=== PATIENT | male | born 2000 | race African-American/Black ===

== ENCOUNTER 2023-02-18 11:50 | Emergency (ER) | payer OTHER, SELFPAY ==
[2023-02-18] VITALS (7 sets, daily range): BP systolic 126–136; BP diastolic 57–63; PULSE 49–64; RESP 16; TEMP 36.9; O2SAT 99–100; BMI 29.6
[2023-02-18] MEDS: PANTOPRAZOLE 40 MG VIAL 80 MG IV (15:30)
[2023-02-18 15:53] LABS: Add Manual Diff / Slide Review NO; Basophils Absolute Auto 0 /uL (0-100); Basophils Percent Auto 0.5 % (0-2); Eosinophils Absolute Auto 100 /uL (0-450); Eosinophils Percent Auto 1.4 % (2-4); Hematocrit 43.6 % (41-53); Hemoglobin 14.7 g/dL (13.5-17.5); Lymphocytes Absolute Auto 1300 /uL (1100-4500); Lymphocytes Percent Auto 31.7 % (25-40); Mean Corpuscular HGB Conc 33.7 % (30-36); Mean Corpuscular Hemoglobin 28.8 PG (26-34); Mean Corpuscular Volume 85.4 fL (80-100); Monocytes Absolute Auto 400 /uL (0-900); Monocytes Percent Auto 10.9 % (3-14); Neutrophils Absolute Auto 2200 /uL (1500-7000); Neutrophils Percent Auto 55.5 % (50-75); Platelet Count 212 X10^3/uL (150-400); Red Blood Cell Count 5.11 X10^6/uL (4.5-5.9); Red Cell Distribution Width 13.4 % (11.6-14.8)
[2023-02-18 16:01] LABS: Alanine Aminotransferase 28 IU/L (<50); Albumin 4.5 g/dL (3.5-5.0); Albumin Globulin Ratio 1.4 (1.0-2.8); Alkaline Phosphatase 44 U/L (38-126); Aspartate Aminotransferase 31 IU/L (17-59); BUN Creatinine Ratio 19.8 (6-22); Bilirubin Total 0.6 mg/dL (0.2-1.3); Blood Urea Nitrogen 16 mg/dL (9-20); Calcium 9.2 mg/dL (8.4-10.2); Carbon Dioxide 28 mmol/L (22-32); Chloride 102 mmol/L (98-107); Estimated Glomerular Filt Rate > 60 mL/min (>60); Globulin 3.2 g/dL (1.7-4.1); Glucose 101 mg/dL (70-100); HEMOLYSIS < 15 (0-50); Potassium 4.3 mmol/L (3.4-5.1); Sodium 137 mmol/L (137-145); Total Protein 7.7 g/dL (6.3-8.2)
[2023-02-18 16:05] LABS: INR 1.2 (0.9-1.3); Prothrombin Time 13.2 SECONDS (10.1-12.7)
[2023-02-18 16:08] LABS: PTT Partial Thromboplastin Tim 33 SECONDS (26-36)
--- NOTE | 2023-02-18 17:24 | DI.CT.S_ITS ---
PROCEDURE: CT ABDOMEN PELVIS W CON INDICATIONS: IV contrast only/rectal bleeding TECHNIQUE: After the administration of IV contrast, axial sections were acquired from the lung bases to the pubic symphysis. Coronal and sagittal reformats were performed. For radiation dose reduction, the following was used: automated exposure control, adjustment of mA and/or kV according to patient size. COMPARISON: None. FINDINGS: Image quality: Excellent. Lung bases: Unremarkable. Heart: No significant findings. ABDOMEN: Liver: Unremarkable. Gallbladder: Unremarkable. Biliary ducts: Unremarkable. Pancreas: Unremarkable. Spleen: Unremarkable. Adrenal Glands: Unremarkable. Kidneys and Ureters: Unremarkable. Stomach and Bowel: In this patient with this given history, scrutiny is given to the rectum. No focal rectal wall thickening can be seen. No perirectal inflammatory change is identified. No dilated loops of small bowel are seen. A normal appendix is incidentally noted. No significant gastric abnormality is seen. Peritoneum: No abnormal intraperitoneal fluid. No free air. Ventral Wall: No hernia. Abdominal Nodes: No retroperitoneal or mesenteric adenopathy by size criteria. Vessels: Aorta and inferior vena cava are normal in size. PELVIS: Pelvic Organs: Unremarkable. Bladder: Unremarkable. Pelvic Nodes: No enlarged lymph nodes. Miscellaneous: No inguinal hernias are seen. Bones: Unremarkable. IMPRESSION: A cause of rectal bleeding is not seen on this study. Dictated by: Prashanth Crow M.D. on 02/18/2023 at 17:13 Approved by: Prashanth Crow M.D. on 02/18/2023 at 17:15
--- NOTE | 2023-02-18 17:25 | ED.GIBLEED ---
HPI - GI Bleed <Jaret Rees MD - Last Filed: 03/08/23 22:41> General Chief complaint: GI Bleed Stated complaint: rectal bleeding T-7 Time Seen by Provider: 02/18/23 17:00 Source: patient Mode of arrival: Ambulatory History of Present Illness HPI Narrative: Patient here for intermittent bright red blood per rectum. Denies any history ulcerative colitis or Crohn's disease. No history of diverticulosis. No history of anal fissures or hemorrhoids. Patient has painless bright red blood per rectum. Except for when he wipes has discomfort. Denies having to strain for bowel movements. Not on any blood thinners. Patient denies any dizziness dyspnea or syncope Related Data Allergies Allergy/AdvReac Type Severity Reaction Status Date / Time No Known Drug Allergies Allergy Verified 02/18/23 12:18 Review of Systems <Jaret Rees MD - Last Filed: 03/08/23 22:41> Review of Systems Narrative: GENERAL: negative chills, fatigue, malaise, fever, sweats. HEENT: negative sinus pain, ear pain, sore throat RESPIRATORY: negative dyspnea, cough CARDIOVASCULAR: negative chest pain, palpitations GASTROINTESTINAL: negative nausea, vomiting, abdominal pain, positive rectal bleeding : negative dysuria, frequency, hematuria MUSCULOSKELETAL: negative muscle or bony pain SKIN: negative rash, skin lesions NEUROLOGIC: negative weakness, numbness ROS Unobtainable: All systems reviewed & are unremarkable except as noted in HPI and below Patient History <Jaret Rees MD - Last Filed: 03/08/23 22:41> Social History Smoking Status: Never smoker Smoking Status: Never smoker Substance Use Type: does not use Exam <Jaret Rees MD - Last Filed: 03/08/23 22:41> Narrative Exam Narrative: GENERAL: in no distress, not toxic not dyspneic HEAD: Normocephalic. EYES: Pupils equal round ENT: Mucous membranes moist. NECK: Trachea midline. CARDIOVASCULAR: Regular rate and rhythm without murmurs RESPIRATORY: Clear to auscultation. Breath sounds equal bilaterally. No wheezes, rales, or rhonchi. GASTROINTESTINAL: Abdomen soft, non-tender, examination of the anus and rectum. There is no external hemorrhoid. No fissure. No active bleeding. EXTREMITIES: No gross deformities. BACK: No flank tenderness. NEURO: AOx4. SKIN: Warm and dry PSYCH: Not anxious, is cooperative Initial Vital Signs Initial Vital Signs: Vital Signs Temperature 98.4 F 02/18/23 12:06 Pulse Rate 56 L 02/18/23 12:06 Respiratory Rate 16 02/18/23 12:06 Blood Pressure 132/60 02/18/23 12:06 Pulse Oximetry 99 02/18/23 12:06 Oxygen Delivery Method Room Air 02/18/23 12:06 <Yokasta Zapata DO - Last Filed: 02/19/23 01:26> Initial Vital Signs Initial Vital Signs: Vital Signs Temperature 98.4 F 02/18/23 12:06 Pulse Rate 56 L 02/18/23 12:06 Respiratory Rate 16 02/18/23 12:06 Blood Pressure 132/60 02/18/23 12:06 Pulse Oximetry 99 02/18/23 12:06 Oxygen Delivery Method Room Air 02/18/23 12:06 Course <Jaret Rees MD - Last Filed: 03/08/23 22:41> Orders Ordered: Discontinued Medications Sodium Chloride (Normal Saline 0.9%) 500 mls @ 1,000 mls/hr IV BOLUS ONE Stop: 02/18/23 17:53 Last Infusion: 02/18/23 18:34 Dose: 0 mls/hr Documented By: Admin: 02/18/23 18:07 Dose: 1,000 mls/hr Documented By: NIKKI Ondansetron HCl (Ondansetron 4 Mg/2 Ml Inj) 4 mg IV NOW PRN PRN Reason: Nausea And Vomiting Ondansetron HCl (Ondansetron 4 Mg Odt) 4 mg SL NOW PRN PRN Reason: Nausea And Vomiting Pantoprazole Sodium (Pantoprazole 40 Mg Vial) 80 mg IV NOW ONE Stop: 02/18/23 12:15 Last Admin: 02/18/23 15:30 Dose: 80 mg Documented By: YELITZA Vital Signs Vital signs: Vital Signs - 8 hr 02/18/23 17:30 02/18/23 17:31 02/18/23 17:31 Pulse Rate 49 L 50 L Blood Pressure 136/63 Pulse Oximetry 99 100 Oxygen Delivery Method 02/18/23 18:00 Pulse Rate 51 L Blood Pressure Pulse Oximetry 100 Oxygen Delivery Method Room Air <Yokasta Zapata DO - Last Filed: 02/19/23 01:26> Orders Ordered: Discontinued Medications Sodium Chloride (Normal Saline 0.9%) 500 mls @ 1,000 mls/hr IV BOLUS ONE Stop: 02/18/23 17:53 Last Infusion: 02/18/23 18:34 Dose: 0 mls/hr Documented By: Admin: 02/18/23 18:07 Dose: 1,000 mls/hr Documented By: NIKKI Ondansetron HCl (Ondansetron 4 Mg/2 Ml Inj) 4 mg IV NOW PRN PRN Reason: Nausea And Vomiting Ondansetron HCl (Ondansetron 4 Mg Odt) 4 mg SL NOW PRN PRN Reason: Nausea And Vomiting Pantoprazole Sodium (Pantoprazole 40 Mg Vial) 80 mg IV NOW ONE Stop: 02/18/23 12:15 Last Admin: 02/18/23 15:30 Dose: 80 mg Documented By: YELITZA Vital Signs Vital signs: Vital Signs - 8 hr 02/18/23 17:30 02/18/23 17:31 02/18/23 17:31 Pulse Rate 49 L 50 L Blood Pressure 136/63 Pulse Oximetry 99 100 Oxygen Delivery Method 02/18/23 18:00 Pulse Rate 51 L Blood Pressure Pulse Oximetry 100 Oxygen Delivery Method Room Air MDM - GI Bleed <Jaret Rees MD - Last Filed: 03/08/23 22:41> Lab Data 02/18/23 15:10 02/18/23 15:10 Labs: Lab Results 02/18/23 02/18/23 02/18/23 Range/Units 15:10 15:10 15:10 WBC 4.0 L (4.5-11.0) X10^3/uL RBC 5.11 (4.5-5.9) X10^6/uL Hgb 14.7 (13.5-17.5) g/dL Hct 43.6 (41-53) % MCV 85.4 (80-100) fL MCH 28.8 (26-34) PG MCHC 33.7 (30-36) % RDW 13.4 (11.6-14.8) % Plt Count 212 (150-400) X10^3/uL Neut % (Auto) 55.5 (50-75) % Lymph % (Auto) 31.7 (25-40) % Gladwin % (Auto) 10.9 (3-14) % Eos % (Auto) 1.4 L (2-4) % Baso % (Auto) 0.5 (0-2) % Neut # (Auto) 2200 (7968-6698) /uL Lymph # (Auto) 1300 (7099-9815) /uL Gladwin # (Auto) 400 (0-900) /uL Eos # (Auto) 100 (0-450) /uL Baso # (Auto) 0 (0-100) /uL PT 13.2 H (10.1-12.7) SECONDS INR 1.2 (0.9-1.3) APTT 33 (26-36) SECONDS Sodium 137 (137-145) mmol/L Potassium 4.3 (3.4-5.1) mmol/L Chloride 102 (98-107) mmol/L Carbon Dioxide 28 (22-32) mmol/L BUN 16 (9-20) mg/dL Creatinine 0.81 (0.66-1.25) mg/dL Estimated GFR > 60 (>60) mL/min BUN/Creatinine Ratio 19.8 (6-22) Glucose 101 H (70-100) mg/dL Calcium 9.2 (8.4-10.2) mg/dL Total Bilirubin 0.6 (0.2-1.3) mg/dL AST 31 (17-59) IU/L ALT 28 (<50) IU/L Alkaline Phosphatase 44 (38-126) U/L Total Protein 7.7 (6.3-8.2) g/dL Albumin 4.5 (3.5-5.0) g/dL Globulin 3.2 (1.7-4.1) g/dL Albumin/Globulin Ratio 1.4 (1.0-2.8) Blood Type Antibody Screen 02/18/23 Range/Units 15:10 WBC (4.5-11.0) X10^3/uL RBC (4.5-5.9) X10^6/uL Hgb (13.5-17.5) g/dL Hct (41-53) % MCV (80-100) fL MCH (26-34) PG MCHC (30-36) % RDW (11.6-14.8) % Plt Count (150-400) X10^3/uL Neut % (Auto) (50-75) % Lymph % (Auto) (25-40) % Gladwin % (Auto) (3-14) % Eos % (Auto) (2-4) % Baso % (Auto) (0-2) % Neut # (Auto) (0938-6910) /uL Lymph # (Auto) (9788-4433) /uL Gladwin # (Auto) (0-900) /uL Eos # (Auto) (0-450) /uL Baso # (Auto) (0-100) /uL PT (10.1-12.7) SECONDS INR (0.9-1.3) APTT (26-36) SECONDS Sodium (137-145) mmol/L Potassium (3.4-5.1) mmol/L Chloride (98-107) mmol/L Carbon Dioxide (22-32) mmol/L BUN (9-20) mg/dL Creatinine (0.66-1.25) mg/dL Estimated GFR (>60) mL/min BUN/Creatinine Ratio (6-22) Glucose (70-100) mg/dL Calcium (8.4-10.2) mg/dL Total Bilirubin (0.2-1.3) mg/dL AST (17-59) IU/L ALT (<50) IU/L Alkaline Phosphatase (38-126) U/L Total Protein (6.3-8.2) g/dL Albumin (3.5-5.0) g/dL Globulin (1.7-4.1) g/dL Albumin/Globulin Ratio (1.0-2.8) Blood Type A Positive Antibody Screen Negative Imaging Data CT scan - abdomen/pelvis: Radiologist's Impression: [address] [address] [address] Scan Report Signed Patient: Chetan Knight MR#: [id number] : 2000 Acct:[id number] Age/Sex: 22 / M Date of Service: 02/18/23 Loc: ED Accession Number: [id number] ?? Procedure: CT abdomen pelvis w con Ordering Provider: Jaret Rees MD PROCEDURE:? CT ABDOMEN PELVIS W CON ? INDICATIONS:? IV contrast only/rectal bleeding ? TECHNIQUE:? After the administration of IV contrast, axial sections were acquired from the lung bases to the pubic symphysis.? Coronal and sagittal reformats were performed.? For radiation dose reduction, the following was used:? automated exposure control, adjustment of mA and/or kV according to patient size. ? COMPARISON:? None. ? FINDINGS:? Image quality:? Excellent.? ? Lung bases:? Unremarkable.? ? Heart:? No significant findings. ? ? ABDOMEN: Liver:? Unremarkable.? ? Gallbladder:? Unremarkable.? ? Biliary ducts:? Unremarkable.? ? Pancreas:? Unremarkable.? ? Spleen:? Unremarkable.? ? Adrenal Glands:? Unremarkable.? ? Kidneys and Ureters:? Unremarkable.? ? ? Stomach and Bowel: In this patient with this given history, scrutiny is given to the rectum.? No focal rectal wall thickening can be seen.? No perirectal inflammatory change is identified. No dilated loops of small bowel are seen. A normal appendix is incidentally noted.? No significant gastric abnormality is seen. Peritoneum:? No abnormal intraperitoneal fluid.? No free air.? ? Ventral Wall: ? No hernia.? Abdominal Nodes:? No retroperitoneal or mesenteric adenopathy by size criteria.? Vessels:? Aorta and inferior vena cava are normal in size.? ? PELVIS: Pelvic Organs:? Unremarkable.? ? Bladder:? Unremarkable.? ? Pelvic Nodes: No enlarged lymph nodes.? Miscellaneous: No inguinal hernias are seen. ? ? ? Bones:? Unremarkable.? IMPRESSION:? A cause of rectal bleeding is not seen on this study. ? ? ? Dictated by: Prashanth Crow M.D. on 02/18/2023 at 17:13 ? ? Approved by: Prashanth Crow M.D. on 02/18/2023 at 17:15 ? MDM Narrative Medical decision making narrative: After history and exam CBC CMP PT PTT type and screen normal saline CT abdomen pelvis ordered MDM CC: Rectal bleeding Complicating co-morbidities: None Data collected from: Patient Medical records reviewed: No previous visits here for this complaint Differential considered: Includes but not limited to diverticulosis hemorrhoid anal fissure Crohn's disease ulcerative colitis Exam documented above, pertinent findings include: No hemorrhoid or anal fissure seen Lab Test results independently reviewed as above. Pertinent findings: WBC 4 hemoglobin 14.7 hematocrit 43.6 platelet 212 PT 13.2 INR 1.2 PTT 33 BUN 16 creatinine 0.81 AST 31 ALT 28 A positive Imaging studies independently reviewed: CT abdomen pelvis no acute process Consultations: None indicated at this time Treatments: Normal saline Re-evaluations: 6:30 p.m.. Reviewed results with patient. Agrees with treatment plan and follow up with General surgery for colonoscopy. No bleeding during course of stay. Discussion: Appropriate for discharge home. Vital signs exam and CT imaging are reassuring. Return precautions reviewed with patient. Referral for General surgery for colonoscopy provided. Not toxic. Hemodynamically stable time of discharge Diagnosis: Acute lower GI bleed <Yokasta Zapata DO - Last Filed: 02/19/23 01:26> Lab Data Labs: Lab Results 02/18/23 02/18/23 02/18/23 Range/Units 15:10 15:10 15:10 WBC 4.0 L (4.5-11.0) X10^3/uL RBC 5.11 (4.5-5.9) X10^6/uL Hgb 14.7 (13.5-17.5) g/dL Hct 43.6 (41-53) % MCV 85.4 (80-100) fL MCH 28.8 (26-34) PG MCHC 33.7 (30-36) % RDW 13.4 (11.6-14.8) % Plt Count 212 (150-400) X10^3/uL Neut % (Auto) 55.5 (50-75) % Lymph % (Auto) 31.7 (25-40) % Gladwin % (Auto) 10.9 (3-14) % Eos % (Auto) 1.4 L (2-4) % Baso % (Auto) 0.5 (0-2) % Neut # (Auto) 2200 (8995-3518) /uL Lymph # (Auto) 1300 (4981-2539) /uL Gladwin # (Auto) 400 (0-900) /uL Eos # (Auto) 100 (0-450) /uL Baso # (Auto) 0 (0-100) /uL PT 13.2 H (10.1-12.7) SECONDS INR 1.2 (0.9-1.3) APTT 33 (26-36) SECONDS Sodium 137 (137-145) mmol/L Potassium 4.3 (3.4-5.1) mmol/L Chloride 102 (98-107) mmol/L Carbon Dioxide 28 (22-32) mmol/L BUN 16 (9-20) mg/dL Creatinine 0.81 (0.66-1.25) mg/dL Estimated GFR > 60 (>60) mL/min BUN/Creatinine Ratio 19.8 (6-22) Glucose 101 H (70-100) mg/dL Calcium 9.2 (8.4-10.2) mg/dL Total Bilirubin 0.6 (0.2-1.3) mg/dL AST 31 (17-59) IU/L ALT 28 (<50) IU/L Alkaline Phosphatase 44 (38-126) U/L Total Protein 7.7 (6.3-8.2) g/dL Albumin 4.5 (3.5-5.0) g/dL Globulin 3.2 (1.7-4.1) g/dL Albumin/Globulin Ratio 1.4 (1.0-2.8) Blood Type Antibody Screen 02/18/23 Range/Units 15:10 WBC (4.5-11.0) X10^3/uL RBC (4.5-5.9) X10^6/uL Hgb (13.5-17.5) g/dL Hct (41-53) % MCV (80-100) fL MCH (26-34) PG MCHC (30-36) % RDW (11.6-14.8) % Plt Count (150-400) X10^3/uL Neut % (Auto) (50-75) % Lymph % (Auto) (25-40) % Gladwin % (Auto) (3-14) % Eos % (Auto) (2-4) % Baso % (Auto) (0-2) % Neut # (Auto) (8428-3000) /uL Lymph # (Auto) (1485-6819) /uL Gladwin # (Auto) (0-900) /uL Eos # (Auto) (0-450) /uL Baso # (Auto) (0-100) /uL PT (10.1-12.7) SECONDS INR (0.9-1.3) APTT (26-36) SECONDS Sodium (137-145) mmol/L Potassium (3.4-5.1) mmol/L Chloride (98-107) mmol/L Carbon Dioxide (22-32) mmol/L BUN (9-20) mg/dL Creatinine (0.66-1.25) mg/dL Estimated GFR (>60) mL/min BUN/Creatinine Ratio (6-22) Glucose (70-100) mg/dL Calcium (8.4-10.2) mg/dL Total Bilirubin (0.2-1.3) mg/dL AST (17-59) IU/L ALT (<50) IU/L Alkaline Phosphatase (38-126) U/L Total Protein (6.3-8.2) g/dL Albumin (3.5-5.0) g/dL Globulin (1.7-4.1) g/dL Albumin/Globulin Ratio (1.0-2.8) Blood Type A Positive Antibody Screen Negative [facility] Narrative Medical decision making narrative: After history and exam CBC CMP PT PTT type and screen normal saline CT abdomen pelvis ordered [facility] CC: Rectal bleeding Complicating co-morbidities: None Data collected from: Patient Medical records reviewed: No previous visits here for this complaint Differential considered: Includes but not limited to diverticulosis hemorrhoid anal fissure Crohn's disease ulcerative colitis Exam documented above, pertinent findings include: No hemorrhoid or anal fissure seen Lab Test results independently reviewed as above. Pertinent findings: WBC 4 hemoglobin 14.7 hematocrit 43.6 platelet 212 PT 13.2 INR 1.2 PTT 33 BUN 16 creatinine 0.81 AST 31 ALT 28 A positive Imaging studies independently reviewed: CT abdomen pelvis no acute process Consultations: None indicated at this time Treatments: Normal saline Re-evaluations: 6:30 p.m.. Reviewed results with patient. Agrees with treatment plan and follow up with General surgery for colonoscopy. No bleeding during course of stay. Discussion: Appropriate for discharge home. Vital signs exam and CT imaging are reassuring. Return precautions reviewed with patient. Referral for General surgery for colonoscopy provided. Not toxic. Hemodynamically stable time of discharge Diagnosis: Acute lower GI bleed Benny--patient was never seen or evaluated by myself patient was dispositioned by Dr. Rees Discharge Plan Departure Patient Disposition: Home Clinical Impression: Lower gastrointestinal hemorrhage Instructions: Gastrointestinal Bleeding Activity Restrictions/Additional Instructions: Return if worse if any questions or concerns. Please call provided general surgery office tomorrow to schedule outpatient colonoscopy. Return immediately if worse if any questions or increased bleeding or if any dizziness or shortness of breath or fainting. Referrals: Mauro Rdz MD [Physician] - Provider,Kathy DELEON [Primary Care Provider] - Stand Alone Forms: Patient Portal/API, Work Release Note
[2023-02-18] MEDS: SODIUM CHLORIDE 0.9% 500 ML 1000 ML IV (18:07)
== END 2023-02-18 18:34 | disposition home or self-care (01) ==
PROVIDERS: Emergency Provider Emergency Medicine
DX: K92.2 Gastrointestinal hemorrhage, unspecified (principal)
CPT/HCPCS: 36415; 74177; 80053; 85025; 85610; 85730; 86850; 86900; 86901; 96374; 99284; C9113; Q9967